=== PATIENT | male | born 1975 | race Caucasian/White ===

== ENCOUNTER 2021-11-15 19:04 | Emergency (ER) | payer OTHER ==
[~2021-11-15 19:04] MED LIST: IBUPROFEN600 MG PO; NORCO 5-325 TA1 EACH PO; PERCOCET 5/325 T1 EA PO
[2021-11-15 19:56] LABS: HEMOGLOBIN 16.1 gm/dl (14.0-17.5); RED BLOOD COUNT 5.74 M/UL (4.20-5.50); WHITE BLOOD COUNT 12.4 K/UL (4.5-11.0)
[2021-11-15 20:24] LABS: BUN/CREATININE RATIO 21 (0-10)
== END 2021-11-16 00:34 | disposition home or self-care (01) ==
LOC: ER1 19:04
PROVIDERS: Student in an Organized Health Care Education/Training Program
DX: T50.901A Poisoning by unspecified drugs, medicaments and biological substances, accidental (unintentional), initial encounter (principal); J44.9 Chronic obstructive pulmonary disease, unspecified; G62.9 Polyneuropathy, unspecified
CPT/HCPCS: 36600; 71045; 80048; 82550; 82553; 82803; 84484; 85025; 93005; 99285

== ENCOUNTER 2022-01-07 02:02 | Emergency (ER) | payer OTHER ==
[2022-01-07 02:45] LABS: HEMOGLOBIN 16.1 gm/dl (14.0-17.5); RED BLOOD COUNT 5.64 M/UL (4.20-5.50); WHITE BLOOD COUNT 10.6 K/UL (4.5-11.0)
[2022-01-07 03:04] LABS: BUN/CREATININE RATIO 18 (0-10)
== END 2022-01-07 04:40 | disposition home or self-care (01) ==
LOC: ER1 02:02
PROVIDERS: Family Medicine
DX: S16.1XXA Strain of muscle, fascia and tendon at neck level, initial encounter (principal); S80.02XA Contusion of left knee, initial encounter; S00.93XA Contusion of unspecified part of head, initial encounter; F17.210 Nicotine dependence, cigarettes, uncomplicated; J44.9 Chronic obstructive pulmonary disease, unspecified; I11.9 Hypertensive heart disease without heart failure; Z23 Encounter for immunization; V49.9XXA Car occupant (driver) (passenger) injured in unspecified traffic accident, initial encounter
CPT/HCPCS: 70486; 71046; 72125; 73564; 80053; 85025; 90471; 90715; 93005; 99284